=== PATIENT | male | born 1975 | race Caucasian/White ===

== ENCOUNTER 2020-07-28 14:10 | Observation (INO) | payer BC, OTHER ==
[2020-07-28] MEDS: Dextrose 5%-Lactated Ringers 1,000 ML IV SCH ×2 (14:45→23:57)
[2020-07-28] MEDS ORDERED: Ondansetron 4 MG/2 ML SDV IVPUSH PRN (16:48)
--- NOTE | 2020-07-28 16:50 | PCM.HP.2 ---
H&P History of Present Illness - General Date of Service: 07/28/20 Admit Problem/Dx: Admission Diagnosis/Problem Admission Diagnosis/Problem Dehydration Source of Information: Patient History Limitations: Reports: No Limitations - History of Present Illness Initial Comments - Free Text/Narative: Jesse had gastric bypass on 07/17.Went home on Post op Day #3. Was seen at [facility] a today,and admitted for dehydration. He has been having weakness,unable to keep much down. No abd pain,no constipation. Has ah/o DM - Related Data Allergies/Adverse Reactions: Allergies Allergy/AdvReac Type Severity Reaction Status Date / Time celecoxib [From Celebrex] Allergy Facial Verified 07/17/20 06:20 Swelling duloxetine HCl Allergy Hypertensio Verified 07/17/20 06:03 [From Cymbalta] n erythromycin base Allergy Rash Verified 07/17/20 06:03 [Erythromycin Base] ibuprofen [From Motrin] Allergy Facial Verified 07/17/20 06:03 Swelling Home Medications: Home Meds Aspirin 975 mg PO WITHDINNER 07/13/20 [History] Ondansetron [Zofran ODT] 4 mg PO Q4H PRN #30 tab.dis 07/19/20 [Rx] Eplerenone 100 mg PO BID 07/28/20 [History] Metoprolol Succinate [Toprol Xl] 50 mg PO BID 07/28/20 [History] PARoxetine [Paxil] 30 mg PO BEDTIME 07/28/20 [History] Past Medical History HEENT History: Reports: Impaired Vision, Otitis Media Other HEENT History: wears glasses Cardiovascular History: Reports: Cardiomyopathy, Hypertension Gastrointestinal History: Reports: Chronic Diarrhea, Irritable Bowel Syndrome Neurological History: Reports: Concussion Psychiatric History: Reports: Anxiety, Depression Endocrine/Metabolic History: Reports: Diabetes, Type II, Obesity/BMI 30+ - Past Surgical History HEENT Surgical History: Reports: Myringotomy w Tube(s), Oral Surgery Other HEENT Surgeries/Procedures: wisdom tooth extraction GI Surgical History: Reports: Cholecystectomy, Colonoscopy Social & Family History - Family History Cardiac: Reports: High Cholesterol, Hypertension : Reports: Renal Disease/Insufficiency, Other (See Below) Other Family History: kidney transplant Psychiatric: Reports: Anxiety, Depression Endocrine/Metabolic: Reports: Diabetes, type II Oncologic: Reports: Leukemia - Tobacco Use Tobacco Use Status *Q: Former Tobacco User Used Tobacco, but Quit: Yes Month/Year Tobacco Last Used: 2007 - Caffeine Use Caffeine Use: Reports: None - Recreational Drug Use Recreational Drug Use: No H&P Review of Systems - Review of Systems: Review Of Systems: Comprehensive ROS is negative, except as noted in HPI. Exam - Exam Exam: See Below - Vital Signs Weight: 112.854 kg - Exam General: Alert, Oriented, 4 HEENT: PERRLA, Hearing Intact, Mucosa Moist & [place], Nares Patent, Normal Nasal Septum, Posterior Pharynx Clear, Conjunctiva Clear, EOMI, EACs Clear, TMs Clear Neck: Supple, Trachea Midline, 2 Lungs: Clear to Auscultation, Normal Respiratory Effort Cardiovascular: Regular Rate, Regular Rhythm GI/Abdominal Exam: Normal Bowel Sounds, Soft, Non-Tender, No Organomegaly, No Distention, No Abnormal Bruit, No Mass, Pelvis Stable (Male) Exam: No Hernia, Normal Inspection, Normal Prostate, Circumcised Rectal (Males) Exam: Normal Exam, Normal Rectal Tone, Prostate Normal Back Exam: Normal Inspection, Full Range of Motion, NT Extremities: Normal Inspection, Normal Range of Motion, Non-Tender, No Pedal E suze, Normal Capillary Refill Skin: Warm, Dry, Intact Neurological: Cranial Nerves Intact, Reflexes Equal Bilateral Neuro Extensive - Mental Status: Alert, Oriented x3, Normal Mood/Affect, Normal Cognition Neuro Extensive - Motor, Sensory, Reflexes: CN II-XII Intact, Normal Gait, Normal Reflexes Psychiatric: Alert, Normal Affect, Normal Mood - Patient Data Result Diagrams: 07/29/20 06:30 07/29/20 06:30 - Problem List (1) Dehydration SNOMED Code(s): 66810546 ICD Code: E86.0 - DEHYDRATION Status: Acute Current Visit: Yes (2) S/P gastric bypass SNOMED Code(s): 952541727, 923605476, 722903846, 881085982 ICD Code: Z98.84 - BARIATRIC SURGERY STATUS Status: Acute Current Visit: Yes Problem List Initiated/Reviewed/Updated: Yes Orders Last 24hrs: Active Orders 24 hr Category Date Time Status Admission Status [Patient Status] [ADT] Routine ADT 07/28/20 14:35 Active Height and Weight [RC] DAILY Care 07/28/20 16:48 Ordered Oxygen Therapy [RC] PRN Care 07/28/20 16:48 Ordered Up With Assistance [RC] ASDIRECTED Care 07/28/20 16:48 Ordered VTE/DVT Education [RC] Per Unit Routine Care 07/28/20 16:48 Ordered Vital Signs [RC] Q8H Care 07/28/20 16:48 Ordered Full Liquid Diet [DIET] Diet 07/28/20 Dinner Active CBC WITH AUTO DIFF [HEME] AM Lab 07/29/20 05:11 Ordered COMPREHENSIVE METABOLIC PN,CMP [CHEM] AM Lab 07/29/20 05:11 Ordered MAGNESIUM [CHEM] AM Lab 07/29/20 05:11 Ordered PHOSPHORUS [CHEM] AM Lab 07/29/20 05:11 Ordered Dextrose 5%-Lactated Ringers 1,000 ml Med 07/28/20 14:35 Active IV ASDIRECTED Enoxaparin [Lovenox] Med 07/28/20 17:00 Ordered 40 mg SUBCUT Q24H MVI, Adult with Vitamin K [Infuvite Adult] 10 ml Med 07/28/20 17:00 Active Thiamine [Vitamin B-1] 100 mg Folic Acid 1 mg Magnesium Sulfate [Magnesium Sulfate 50%] 3 gm Sodium Chloride 0.9% [Normal Saline] 1,000 ml IV ONETIME Ondansetron [Zofran] Med 07/28/20 16:48 Ordered 4 mg IV Q4H PRN Sequential Compression Device [OM.PC] Per Unit Routine Oth 07/28/20 16:48 Ordered Resuscitation Status Routine Resus Stat 07/28/20 16:48 Ordered Medication Orders Dextrose/Lactated Ringer's (Dextrose 5%-Lactated Ringers) 1,000 mls @ 125 mls/ hr IV ASDIRECTED AARON Multivitamins/Minerals 10 ml/Thiamine HCl 100 mg/ Folic Acid 1 mg/ Magnesium Cruz lfate 3 gm/ Sodium Chloride 1,017.2 mls @ 500 mls/hr IV ONETIME ONE Stop: 07/28/20 19:02 Assessment/Plan Comment:: IV fluid supplementation,Banan Bag.Repeat Labs in AM
[2020-07-28] MEDS ORDERED: Enoxaparin 40 MG/0.4 ML Syringe SUBCUT SCH (17:00)
[2020-07-28] MEDS ORDERED: MVI, Adult with Vitamin K 10 ML, Thiamine 100 MG, Folic Acid 1 MG, Magnesium Sulfate 3 ... IV ONE ×5 (17:00)
[2020-07-28] MEDS ORDERED: Aspirin 325 MG Tab.EC PO SCH (18:00)
[2020-07-28] MEDS ORDERED: Metoprolol Succinate 50 MG Tab.ER PO SCH (19:00)
[2020-07-28] MEDS: EPLERENONE 50 MG PO SCH (19:17)
[2020-07-28] MEDS: Metoprolol Succinate 50 MG Tab.ER PO SCH (22:32)
[2020-07-29] MEDS ORDERED: Aluminum Hydroxide/Magnesium Hydroxide Susp 30 ML Cup PO PRN (04:28)
--- NOTE | 2020-07-29 08:27 | PCM.DCSUM1 ---
Discharge Summary - Hospital Course Diagnosis: Stroke: No - Discharge Data Discharge Date: 07/29/20 Discharge Disposition: Home, Self-Care 01 Condition: Good - Referral to Home Health Primary Care Physician: Tesha Samayoa NP - Discharge Diagnosis/Problem(s) (1) Dehydration SNOMED Code(s): 67843576 ICD Code: E86.0 - DEHYDRATION Status: Acute Current Visit: Yes (2) S/P gastric bypass SNOMED Code(s): 912351671, 802714619, 610043400, 238294378 ICD Code: Z98.84 - BARIATRIC SURGERY STATUS Status: Acute Current Visit: Yes - Discharge Plan Home Medications: Home Meds Aspirin 975 mg PO WITHDINNER 07/13/20 [History] Ondansetron [Zofran ODT] 4 mg PO Q4H PRN #30 tab.dis 07/19/20 [Rx] Eplerenone 100 mg PO BID 07/28/20 [History] Metoprolol Succinate [Toprol Xl] 50 mg PO BID 07/28/20 [History] PARoxetine [Paxil] 30 mg PO BEDTIME 07/28/20 [History] Referrals: Jay Carrington MD [Physician] - 08/02/20 - Discharge Summary/Plan Comment DC Time >30 min.: Yes - General Info Date of Service: 07/29/20 Subjective Update: Feels Better today. Functional Status: Reports: Pain Controlled - Review of Systems General: Reports: No Symptoms HEENT: Reports: No Symptoms Pulmonary: Reports: No Symptoms Cardiovascular: Reports: No Symptoms Gastrointestinal: Reports: No Symptoms Genitourinary: Reports: No Symptoms Musculoskeletal: Reports: No Symptoms Skin: Reports: No Symptoms Neurological: Reports: No Symptoms Psychiatric: Reports: No Symptoms - Patient Data Vitals - Most Recent: Last Vital Signs Temp 97.8 F 07/29/20 04:30 Pulse 68 07/29/20 04:30 Resp 16 07/29/20 04:30 BP 122/73 07/29/20 04:30 Pulse Ox 99 07/29/20 04:30 Weight - Most Recent: 113.716 kg I&O - Last 24 hours: Intake & Output 07/28/20 07/29/20 07/29/20 22:59 06:59 14:59 Intake Total 1729 898 Balance 1729 898 Lab Results - Last 24 hrs: Laboratory Results - last 24 hr 07/28/20 07/29/20 07/29/20 Range/Units 23:48 06:30 06:30 WBC 6.8 (3.2-10.1) x10-3/uL RBC 4.54 (3.90-5.90) x10(6)uL Hgb 14.8 (12.9-17.7) g/dL Hct 42.9 (38.3-50.1) % MCV 94.6 (80.8-98.7) fL MCH 32.6 (27.0-33.3) pg MCHC 34.5 (28.7-35.3) g/dL RDW 13.9 (12.4-15.0) % Plt Count 243 (117-477) x10(3)uL MPV 7.4 (6.7-11.0) fL Neut % (Auto) 66.0 (40.3-71.8) % Lymph % (Auto) 23.4 (15.8-45.3) % [place] % (Auto) 8.7 (5.5-15.2) % Eos % (Auto) 0.9 (0.1-6.8) % Baso % (Auto) 1.0 (0.3-3.8) % Neut # (Auto) 4.5 (1.7-6.9) x10-3/uL Lymph # (Auto) 1.6 (0.5-4.5) x10-3/uL [place] # (Auto) 0.6 (0.0-1.2) x10-3/uL Eos # (Auto) 0.1 (0.0-0.6) x10-3/uL Baso # (Auto) 0.1 (0.0-0.3) x10-3/uL Sodium 137 (135-145) mmol/L Potassium 3.6 (3.5-5.3) mmol/L Chloride 103 (100-110) mmol/L Carbon Dioxide 16 L (21-32) mmol/L BUN 18 (7-18) mg/dL Creatinine 1.2 (0.70-1.30) mg/dL Est Cr Clr Drug Dosing 78.58 mL/min Estimated GFR (MDRD) > 60 (>60) BUN/Creatinine Ratio 15.0 (9-20) Glucose 185 H (80-116) mg/dL POC Glucose 185 H (80-116) mg/dL Calcium 7.6 L (8.6-10.2) mg/dL Phosphorus 1.9 L (2.6-4.6) mg/dL Magnesium 2.3 (1.8-2.5) mg/dL Total Bilirubin 0.6 (0.1-1.3) mg/dL AST 19 D (5-25) IU/L ALT 52 H D (12-36) U/L Alkaline Phosphatase 62 (56-112) IU/L Total Protein 6.1 (6.0-8.0) g/dL Albumin 3.0 L (3.5-5.2) g/dL Globulin 3.1 g/dL Albumin/Globulin Ratio 1.0 Med Orders - Current: Current Medications Al Hydroxide/Mg Hydroxide (Aluminum Hydroxide/Magnesium Hydroxide Susp 30 Ml Cup) 30 ml PO Q2H PRN PRN Reason: Heartburn Last Admin: 07/29/20 04:34 Dose: 30 ml Documented by: Aspirin (Aspirin 325 Mg Tab.Ec) 975 mg PO WITHDINNER [facility] Last Admin: 07/28/20 19:17 Dose: 975 mg Documented by: Enoxaparin Sodium (Enoxaparin 40 Mg/0.4 Ml Syringe) 40 mg SUBCUT Q24H [facility] Dextrose/Lactated Ringer's (Dextrose 5%-Lactated Ringers) 1,000 mls @ 125 mls/hr IV ASDIRECTED [facility] Last Admin: 07/28/20 23:57 Dose: 125 mls/hr Documented by: Metoprolol Succinate (Metoprolol Succinate 50 Mg Tab.Er) 50 mg PO BID [facility] Last Admin: 07/28/20 22:32 Dose: 50 mg Documented by: Eplerenone 50 Mg Tab (*Pt Own Med*) 100 mg PO BIDMEALS [facility] Last Admin: 07/28/20 19:17 Dose: 100 mg Documented by: Ondansetron HCl (Ondansetron 4 Mg/2 Ml Sdv) 4 mg IVPUSH Q4H PRN PRN Reason: Nausea/Vomiting Paroxetine HCl (Paroxetine 30 Mg Tab) 30 mg PO BEDTIME [facility] Last Admin: 07/28/20 23:27 Dose: 30 mg Documented by: Discontinued Medications Multivitamins/Minerals 10 ml/Thiamine HCl 100 mg/ Folic Acid 1 mg/ Magnesium Sulfate 3 gm/ Sodium Chloride 1,017.2 mls @ 500 mls/hr IV ONETIME ONE Stop: 07/28/20 19:02 Last Admin: 07/28/20 17:27 Dose: 500 mls/hr Documented by: Metoprolol Succinate (Metoprolol Succinate 50 Mg Tab.Er) [facility] Last Admin: 07/29/20 06:23 Dose: Not Given Documented by: - Exam General: Reports: Alert, Oriented HEENT: Reports: Pupils Equal, Pupils Reactive, EOMI, Mucous Membr. Moist/[place] Neck: Reports: Supple Lungs: Reports: Clear to Auscultation, Normal Respiratory Effort Cardiovascular: Reports: Regular Rate, Regular Rhythm GI/Abdominal Exam: Normal Bowel Sounds, Soft, Non-Tender, No Organomegaly, No Distention, No Abnormal Bruit, No Mass, Pelvis Stable (Male) Exam: No Hernia, Normal Inspection, Normal Prostate, Circumcised Rectal (Males) Exam: Normal Exam, Normal Rectal Tone, Prostate Normal Back Exam: Reports: Normal Inspection, Full Range of Motion Extremities: Normal Inspection, Normal Range of Motion, Non-Tender, No Pedal Edema, Normal Capillary Refill Skin: Reports: Warm, Dry, Intact Wound/Incisions: Reports: Healing Well Neurological: Reports: No New Focal Deficit Psy/Mental Status: Reports: Alert, Normal Affect, Normal Mood
[2020-07-29] MEDS: EPLERENONE 50 MG PO SCH (08:30)
[2020-07-29] MEDS: Metoprolol Succinate 50 MG Tab.ER PO SCH (08:46)
[2020-07-29 09:20] VITALS: BP 114/74; PULSE 88
== END 2020-07-29 09:00 | disposition home or self-care (01) ==
LOC: FB.MS 14:43
PROVIDERS: ADMIT Family Medicine; ATTEND Family Medicine
DX: E86.0 Dehydration (principal); Z98.84 Bariatric surgery status; R53.1 Weakness; I10 Essential (primary) hypertension; E11.9 Type 2 diabetes mellitus without complications; E66.9 Obesity, unspecified; Z68.36 Body mass index [BMI] 36.0-36.9, adult; Z88.1 Allergy status to other antibiotic agents; Z88.8 Allergy status to other drugs, medicaments and biological substances; Z79.82 Long term (current) use of aspirin; Z79.84 Long term (current) use of oral hypoglycemic drugs; Z87.891 Personal history of nicotine dependence
CPT/HCPCS: 36415; 80053; 82947; 83735; 84100; 85025; A9270; J3411; J3475; J7030; J7121; 96365; 96366; G0378; G0379; J3490